=== PATIENT | male | born 1965 | race Two or more races ===

== ENCOUNTER → 2024-12-11 | Outpatient (CLI) | payer MEDICAID, SELFPAY ==
--- NOTE | 2024-12-11 15:19 | XR_ITS ---
Examination: Facial series 3 views TECHNIQUE: Jay Montes lateral facial series 3 views Date and time: December 11, 2024 1532 hours INDICATIONS: Injury to the jaw 10 days ago with drop pain. FINDINGS: No mandible or maxillary fracture noted Orbital rims appear intact IMPRESSION: No mandible fracture depicted If pain persists, consider CT maxillofacial study follow-up
--- NOTE | 2024-12-11 15:19 | XR_ITS ---
Examination: Mandible series 5 views TECHNIQUE: Jillian Thompson lateral, right and left sagittal oblique mandible views obtained Date and time: December 11, 2024 1530 hours INDICATIONS: Injury to the left shoulder 10 days ago with drop pain. FINDINGS: No acute mandible fracture depicted Condyles appear intact with no Will dislocation IMPRESSION: No mandible fracture depicted, if pain persists recommend CT maxillofacial study follow-up
== END | disposition home or self-care (01) ==
PROVIDERS: PCP Nurse Practitioner; Referring Provider Nurse Practitioner; Visit Provider Nurse Practitioner
DX: R68.84 Jaw pain (principal)
CPT/HCPCS: 70110; 70150